=== PATIENT | female | born 1945 ===

== ENCOUNTER 2023-10-28 12:09 | Outpatient (CLI) | payer MEDICARE, BC ==
[~2023-10-28 12:09] MED LIST: Magnevist 469MG/ML 20 ML VIAL ONE
== END 2023-10-28 12:10 | disposition home or self-care (01) ==
LOC: CSHMRI 12:09
PROVIDERS: ATTEND Otolaryngology Plastic Surgery within the Head & Neck
DX: H90.A21 Sensorineural hearing loss, unilateral, right ear, with restricted hearing on the contralateral side (principal); R90.82 White matter disease, unspecified
CPT/HCPCS: 70553; 82565